=== PATIENT | female | born 1980 | race Hispanic/Latino ===

== ENCOUNTER 2018-02-20 17:57 | Inpatient (IN) | payer OTHER | END 2018-02-23 14:15 | disposition home or self-care (01) | LOC: LDH 17:57 → WSH 02-21 17:55 | PROC: 10D00Z1 Extraction of Products of Conception, Low, Open Approach (ICD-10-PCS; principal; 2018-02-21 15:00) | DX: Z3A.38 38 weeks gestation of pregnancy (principal); O41.03X0 Oligohydramnios, third trimester, not applicable or unspecified; Z37.0 Single live birth; O09.523 Supervision of elderly multigravida, third trimester; Z3A.00 Weeks of gestation of pregnancy not specified ==